=== PATIENT | female | born 1985 | race Caucasian/White ===

== ENCOUNTER 2024-06-09 15:24 | Emergency (ER) | payer OTHER ==
[~2024-06-09] VITALS: Ht 182.9 cm; Wt 124.7 kg
[2024-06-09 16:48] LABS: INFLUENZA B NAA POSITIVE (NEGATIVE); RESPIRATORY SYNCYTIAL VIR NAA NEGATIVE (NEGATIVE)
[2024-06-09] MEDS ORDERED: PREDNISONE20 MG PO (17:27)
[2024-06-09] MEDS ORDERED: GUAIFEN-CODEINE10 ML PO (17:27)
[2024-06-09] MEDS ORDERED: VENTOLIN HFA18 GM INH (17:27)
[2024-06-09 17:33] VITALS: BP 125/89
== END 2024-06-09 17:33 | disposition home or self-care (01) ==
LOC: ED 15:24
PROVIDERS: Emergency Medicine
DX: J10.1 Influenza due to other identified influenza virus with other respiratory manifestations (principal); F17.200 Nicotine dependence, unspecified, uncomplicated; Z91.030 Bee allergy status
CPT/HCPCS: 71045; 87502; 99285-25; U0002